=== PATIENT | male | born 1995 | race Caucasian/White ===

== ENCOUNTER 2019-12-07 18:29 | Emergency (ER) | payer MEDICAID ==
[~2019-12-07] VITALS: Ht 167.6 cm; Wt 68.0 kg
[2019-12-07 18:48] VITALS: BP_SYST 120
--- NOTE | 2019-12-07 18:53 | NUR ---
Patient triaged and placed in waiting room. VSS and patient appears in no acute distress at this time. Awaiting available bed, and MD notified of need for MSE.
--- NOTE | 2019-12-07 21:27 | NUR ---
ER Dr. Sutherland in triage examining patient.
--- NOTE | 2019-12-07 21:30 | NUR ---
Patient to ER CHAIR for evaluation.
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
[2019-12-07] MEDS ORDERED: MORPHINE 2 MG/ML INJ. SYRINGE IM ONE (21:45)
[2019-12-07] MEDS ORDERED: ACETAMINOPHEN WITH CODEINE 12.5 ML UDC PO ONE (23:30)
--- NOTE | 2019-12-07 23:36 | NUR ---
MEDICATED PER MD ORDERS.
[2019-12-07 23:48] VITALS: BP_SYST 118
--- NOTE | 2019-12-07 23:48 | NUR ---
Patient given written and verbal discharge instructions and verbalizes understanding. ER MD discussed with patient the results and treatment provided. Patient in stable condition. ID arm band removed. Rx of ACETAMINOPHEN/CODEINE given. Patient educated on pain management and to follow up with PMD. Pain Scale 0/10 Opportunity for questions provided and answered. Medication side effect fact sheet provided.
== END 2019-12-07 23:48 | disposition home or self-care (01) ==
LOC: SED 18:29
DX: S02.69XA Fracture of mandible of other specified site, initial encounter for closed fracture (principal); J45.909 Unspecified asthma, uncomplicated; Y04.8XXA Assault by other bodily force, initial encounter; Y93.89 Activity, other specified; Y92.89 Other specified places as the place of occurrence of the external cause; Y99.8 Other external cause status
CPT/HCPCS: 70486-TC; 99284